=== PATIENT | male | born 1960 | race Caucasian/White ===

== ENCOUNTER 2022-11-21 12:38 | Day surgery (SDC) | payer OTHER ==
[~2022-11-21] VITALS: Ht 170.2 cm; Wt 72.4 kg
[~2022-11-21 12:38] MED LIST: "\\\"BLOOD PRESSURE MED\\\""; (None)20 M1 PO; Mobic7.5 MG PO
[2022-11-21] MEDS ORDERED: ATOR10 (13:03)
[2022-11-21] MEDS ORDERED: Lisinopril2.5 MG (13:03)
[2022-11-21] MEDS ORDERED: ASPI81CH (13:03)
[2022-11-21] MEDS ORDERED: ERGO400 (13:04)
[2022-11-21] MEDS ORDERED: Vitamin B Comple1 EA (13:04)
== END 2022-11-21 14:45 | disposition home or self-care (01) ==
LOC: ORSCSDS 12:38
PROVIDERS: Surgery
PROC: 0DJD8ZZ Inspection of Lower Intestinal Tract, Via Natural or Artificial Opening Endoscopic (ICD-10-PCS; principal; 2022-11-21 14:15)
DX: Z12.11 Encounter for screening for malignant neoplasm of colon (principal); E78.5 Hyperlipidemia, unspecified; I10 Essential (primary) hypertension; Z87.891 Personal history of nicotine dependence; Z79.82 Long term (current) use of aspirin; Z79.899 Other long term (current) drug therapy
CPT/HCPCS: J0330; J0461; J2405; J2704; J7120